=== PATIENT | female | born 1985 | race Hispanic/Latino ===

== ENCOUNTER 2020-06-10 09:00 | Inpatient (IN) | payer BC ==
[~2020-06-10] VITALS: Ht 157.5 cm; Wt 105.2 kg
[~2020-06-10 09:00] MED LIST: ACET1TAB12 PO; DOCU-116 PO; IBUP-1493 PO; PREN1TAB89 PO
[2020-06-15] VITALS (17 sets, daily range): BP systolic 100–212; BP diastolic 58–106
[2020-06-15] MEDS ORDERED: CALDOLOR 800MG+NS 250ML 250 ML IV PRN (06:15)
[2020-06-15] MEDS ORDERED: CEFAZOLIN SODIUM 1 GM VIAL IVP PRN (06:15)
[2020-06-15 07:01] LABS: HEMATOCRIT 40.8 % (36-48); MEAN CORPUSCULAR HEMOGLOBIN 29.4 pg (27.0-33.0); MEAN CORPUSCULAR HGB CONC 33.1 g/dL (32.0-36.0); MEAN CORPUSCULAR VOLUME 88.9 fL (79-99); RED BLOOD CELL COUNT(AUTO) 4.59 MIL/uL (4.00-5.50); RED CELL DISTRIBUTION WIDTH 14.5 % (11.0-15.5); WHITE BLOOD COUNT (AUTO) 9.7 K/uL (4.8-10.8)
[2020-06-15 07:28] LABS: APPEARANCE,URINE Turbid (CLEAR); BILIRUBIN,URINE Negative (NEGATIVE); COLOR,URINE Dark Yellow (YELLOW); GLUCOSE, URINE (UA) Negative (NEGATIVE); KETONES,URINE Trace mg/dL (NEGATIVE); LEUKOCYTE ESTERASE ,URINE Small (NEGATIVE); NITRATE,URINE Negative (NEGATIVE); OCCULT BLOOD,URINE Negative (NEGATIVE); PH,URINE 6.5 (5.0-8.0); PROTEIN,URINE POS 1+ mg/dL (NEGATIVE)
[2020-06-15] MEDS ORDERED: OXYTOCIN-LR 20 UNITS/1000 ML 1,000 ML IV ONE (07:31)
[2020-06-15] MEDS ORDERED: LACTATED RINGERS 1000ML 1,000 ML IV ONE (07:31)
[2020-06-15 07:58] LABS: BACTERIA,URINE Many /HPF (None Seen); RBC,URINE 0-1 /HPF (0-1); SQUAMOUS EPITHELIAL CELL,UR Moderate /HPF (0-2)
[2020-06-15] MEDS ORDERED: PROMETHAZINE HCL 25 MG/ML 1ML AMPULE IM PRN (08:00)
[2020-06-15] MEDS ORDERED: MEASLES/MUMPS/RUBELLA VACCINE, LIVE 0.5 ML/VIAL SQ SCH (08:00)
[2020-06-15] MEDS ORDERED: DIPHENHYDRAMINE HCL 25 MG CAPSULE PO PRN (08:00)
[2020-06-15] MEDS ORDERED: BISACODYL 10 MG SUPP.RECT RC PRN (08:00)
[2020-06-15] MEDS ORDERED: ACETAMINOPHEN-CODEINE 300/30MG TAB PO PRN (08:00)
[2020-06-15] MEDS ORDERED: SODIUM CHLORIDE 0.9% 10 ML VIAL IVP PRN (08:00)
[2020-06-15] MEDS ORDERED: LANOLIN 30GM OINTMENT TP PRN (08:00)
[2020-06-15] MEDS ORDERED: OXYTOCIN-LR 20 UNITS/1000 ML 1,000 ML IV PRN (08:00)
[2020-06-15] MEDS: IBUPROFEN 800 MG TAB PO SCH ×2 (08:00→16:00)
[2020-06-15] MEDS ORDERED: HYDROCODONE/ACETAMINOPHEN 5/325 MG TAB PO PRN (08:00)
[2020-06-15] MEDS ORDERED: DIPH,PERTUSS(ACELL),TET VAC/PF 0.5 ML VIAL IM SCH (08:00)
[2020-06-15] MEDS ORDERED: MEPERIDINE-PF 75 MG/ML SYG IM PRN (08:00)
[2020-06-15] MEDS ORDERED: ACETAMINOPHEN EXTRA STRENGTH 500 MG TABLET PO PRN (08:00)
[2020-06-15] MEDS ORDERED: CEFAZOLIN SODIUM 1 GM VIAL IVP ONE (08:09)
[2020-06-15] MEDS: DOCUSATE SODIUM 100 MG CAP PO SCH ×2 (09:00→21:09)
[2020-06-15] MEDS ORDERED: ONDANSETRON HCL 4 MG/2 ML VIAL ONE (09:24)
[2020-06-15] MEDS ORDERED: ASPI-556 PO (10:45)
[2020-06-15] MEDS ORDERED: HEPATITIS B VIRUS VACCINE-PF 10 MCG/0.5 ML VIAL IM ONE (14:38)
[2020-06-15] MEDS: LIDOCAINE 5% TOPICAL PATCH TP SCH (16:05)
[2020-06-15] MEDS: CALDOLOR 800MG+NS 250ML 250 ML IV SCH (16:05)
[2020-06-15] MEDS: DEXTROSE 5 %-0.45 % NACL 1,000 ML IV PRN (18:13)
--- NOTE | 2020-06-15 19:43 | NUR ---
ACTIVITY; Patient on high fowlers position her baby, IV of D5 1/2 NS infusing well at 150 ml/hour patent. Oswald Catheter intact flowing clear yellow urine. Plan of care discussed with patient verbalizes understanding.
[2020-06-15] MEDS: SIMETHICONE 80 MG TAB.CHEW PO PRN (21:09)
[2020-06-16] MEDS: CALDOLOR 800MG+NS 250ML 250 ML IV SCH (00:04)
[2020-06-16] MEDS: DEXTROSE 5 %-0.45 % NACL 1,000 ML IV PRN (00:11)
[2020-06-16 00:14] VITALS: BP 121/79
--- NOTE | 2020-06-16 04:50 | NUR ---
Activity: Jennifer care done with small lochia rubra, fundus firm. Abdominal binder applied. Patient assisted to get up, sit at bedside chair. She ambulated in the hallway for 10 minutes tolerated well no complaints of pain. She pass out gas. Oswald Catheter taken out and she tolerated it well.
[2020-06-16 04:58] VITALS: BP 117/77
[2020-06-16 07:02] LABS: HEMATOCRIT 36.2 % (36-48); MEAN CORPUSCULAR HEMOGLOBIN 29.6 pg (27.0-33.0); MEAN CORPUSCULAR HGB CONC 32.9 g/dL (32.0-36.0); RED BLOOD CELL COUNT(AUTO) 4.02 MIL/uL (4.00-5.50); RED CELL DISTRIBUTION WIDTH 14.6 % (11.0-15.5); WHITE BLOOD COUNT (AUTO) 13.5 K/uL (4.8-10.8)
[2020-06-16 07:39] VITALS: BP 125/78
[2020-06-16] MEDS: SIMETHICONE 80 MG TAB.CHEW PO PRN (07:41)
[2020-06-16] MEDS: DOCUSATE SODIUM 100 MG CAP PO SCH (07:41)
[2020-06-16] MEDS: IBUPROFEN 800 MG TAB PO SCH ×2 (07:41)
[2020-06-16] MEDS: LIDOCAINE 5% TOPICAL PATCH TP SCH (10:01)
[2020-06-16 11:11] LABS: HEPATITIS Bs ANTIGEN SCREEN P Negative (Negative)
--- NOTE | 2020-06-16 11:40 | NUR ---
DISCHARGE PT LEFT UNIT VIA WHEELCHAIR, WITH BABY IN ARMS, ACCOMPANIED BY SIGNIFICANT OTHER. DENIED PAIN AND HAD NO COMPLAINTS. BABY STRAPPED IN CAR SEAT. PT AND BABY TRANSPORTED BY PERSONAL VEHICLE.
== END 2020-06-16 11:40 | disposition home or self-care (01) | DRG 785 ==
LOC: LDH 06-15 05:51 → WSH 06-15 10:25
PROVIDERS: ADMIT Obstetrics & Gynecology; ATTEND Obstetrics & Gynecology
PROC: 10D00Z1 Extraction of Products of Conception, Low, Open Approach (ICD-10-PCS; 2020-06-15)
PROC: 3E0234Z Introduction of Serum, Toxoid and Vaccine into Muscle, Percutaneous Approach (ICD-10-PCS; 2020-06-15)
PROC: 0UB70ZZ Excision of Bilateral Fallopian Tubes, Open Approach (ICD-10-PCS; principal; 2020-06-15 08:55)
DX: O34.211 Maternal care for low transverse scar from previous cesarean delivery (principal); Z3A.38 38 weeks gestation of pregnancy; Z37.0 Single live birth; O99.214 Obesity complicating childbirth; E66.9 Obesity, unspecified; O69.81X0 Labor and delivery complicated by cord around neck, without compression, not applicable or unspecified; Z30.2 Encounter for sterilization; Z23 Encounter for immunization; Z20.828 Contact with and (suspected) exposure to other viral communicable diseases
CPT/HCPCS: 36415; 59510; 81001; 85027; 86592; 86850; 86900; 86901; 87088; 87340; 90743; A4344; G0378; J0690; J1741; J2405; J2590; J7120; U0003